=== PATIENT | male | born 1945 | race Caucasian/White ===

== ENCOUNTER 2018-04-19 07:22 | Outpatient (CLI) | payer MEDICARE ==
--- NOTE | 2018-04-19 09:14 | ULT ---
HEPATIC ULTRASOUND: History: Abnormal LFTs. FINDINGS: Real-time imaging of the liver was performed. This shows a normal appearing gallbladder. No gallbladd er wall thickening. Technologist reports a negative ultrasound Yancey's sign. The common bile duct in its slightly more extrahepatic portion is slightly dilated, measuring in the 9 mm range. Liver paren chyma is of increased echogenicity. The liver measures 20.5 cm in length. The spleen measures 13.9 cm . DOPPLER EVALUATION WITH SPECTRAL ANALYSIS: Normal flow pattern is seen within the liver. IMPRESSION: Fatty changes of the liver with some borderline hepatosplenomegaly. POS: [facility]
== END 2018-04-19 07:23 | disposition home or self-care (01) ==
LOC: BICULT 07:22
PROVIDERS: ATTEND Internal Medicine Gastroenterology
DX: Z12.11 Encounter for screening for malignant neoplasm of colon (principal); R74.0 Nonspecific elevation of levels of transaminase and lactic acid dehydrogenase [LDH]; K76.0 Fatty (change of) liver, not elsewhere classified
CPT/HCPCS: 76705

== ENCOUNTER 2018-05-06 12:51 | Outpatient (CLI) | payer MEDICARE ==
--- NOTE | 2018-05-06 13:35 | RAD ---
LUMBAR SPINE MINIMUM FOUR VIEWS: HISTORY: Radiculopathy. Spinal stenosis. COMPARISON: None. FINDINGS: The S1 vertebra is mildly lumbarized with a small disk. Moderate narrowing of the L5-S1 disk space. There is narrowing of the intraspinous space from L3-L5 with some cortical stenosis formation and sclerosis. Large posterior disk osteophyte complex at L5-S1. No acute fracture or malalignment. A 2 mm L5-S1 retrolisthesis, degenerative in nature, without translation with flexion or extension. There appear to be calculi projecting in the right inferior renal shadow, measuring up to 4 mm, and a n interpolar renal shadow measuring up to 2 mm. Moderate vascular calcifications. IMPRESSION: 1. Moderate spondylosis, as described. 2. Right-sided nephrolithiasis. POS: [facility]
--- NOTE | 2018-05-06 15:08 | MRI ---
NONCONTRAST MRI LUMBAR SPINE: DATE: 05/06/2018. HISTORY: Lumbar radiculopathy. FINDINGS: There is an incompletely imaged subcentimeter signal hyperintensity seen within the mid portion right kidney which is too small to characterize but statistically likely represents a renal cyst. There a re probable parapelvic left renal cysts seen. The remainder of the retroperitoneal structures demons trate a grossly normal nonenhanced MRI appearance. There is mild atrophy of the paraspinous musculature greater on the right. There is a transitional vertebra at the lumbosacral junction, and the S1 vertebral body does appear l umbarized. Please refer to numbering system on provided images. The conus medullaris is normal in appearance and terminates at the L1-2 level. Focus of increased T1 and T2 weighted signal intensity is seen in the L2 vertebral body likely relate d to small hemangioma or focal area of fat. T12-L1 level: There is a mild central disk protrusion which results in effacement of the central and ventral subarachnoid space without encroachment on the conus medullaris. Neural foramen are widely patent. L1-2 level: There is a broad-based disk-osteophyte complex and facet hypertrophic changes. There is effacement of the anterior aspect of the thecal sac greater to the left of midline with mild narrowi ng of the central spinal canal. Neural foramina are patent. L2-3 level: There is a broad-based disk-osteophyte complex. There are fact hypertrophic changes pre sent with mild fluid signal intensity in the facet joints. There is mild generalized narrowing of th e central spinal canal. There is minimal right and mild left-sided neural foraminal narrowing. L3-4 level: There is a broad-based disk-osteophyte complex. There are severe facet hypertrophic deena nges and prominent ligamentous thickenings. These findings attribute to severe narrowing of the cent ral spinal canal. There is moderate right and mild left-sided neural foraminal narrowing. L4-5 level: There is a question of tracer anterolisthesis of L4 on L5. There is a broad-based disk- osteophyte complex present. There are moderate to severe facet hypertrophic changes and prominent li gamentous thickening. Findings result in severe narrowing of the central spinal canal. There is mil d to moderate bilateral neural foraminal narrowing. L5-S1 level: There is trace retrolisthesis of L5 on S1. A broad-based disk-osteophyte complex is pr esent, and there are mild facet degenerative changes noted. The central spinal canal is patent with only slight effacement of the ventral aspect of the thecal sac. There is moderate left and mild righ t-sided neural foraminal narrowing. IMPRESSION: 1. Please refer to numbering system on this examination. There is a transitional vertebra at the mercy mbosacral junction with lumbarization of the S1 vertebral body. 2. Multilevel degenerative changes in the lumbar spine with severe degrees of central canal narrowin g at the L3-4 level and to a lesser extent at the L4-5 level. Secondary to broad-based disk-osteophyt e complexes and moderate to severe facet hypertrophic changes and ligamentous thickening. Neural for aminal narrowing is also present at these levels as well as the L5-S1 level primarily on the left. 3. Subcentimeter signal hyperintensity right kidney incompletely imaged or evaluated, but statistica lly likely represents a tiny cyst. There are probable left renal parapelvic cysts present. POS: [facility]
== END 2018-05-06 12:52 | disposition home or self-care (01) ==
LOC: BICMRI 12:51
PROVIDERS: ATTEND Physician Assistant Surgical
DX: M47.26 Other spondylosis with radiculopathy, lumbar region (principal); M51.16 Intervertebral disc disorders with radiculopathy, lumbar region; M48.062 Spinal stenosis, lumbar region with neurogenic claudication; M54.5 Low back pain; N20.0 Calculus of kidney; M48.07 Spinal stenosis, lumbosacral region; N28.89 Other specified disorders of kidney and ureter
CPT/HCPCS: 72110; 72148

== ENCOUNTER 2018-07-01 19:30 | Outpatient (CLI) | payer MEDICARE | END 2018-07-01 19:31 | disposition home or self-care (01) | LOC: SLEEPLAB 19:30 | PROVIDERS: ATTEND Family Medicine | DX: G47.33 Obstructive sleep apnea (adult) (pediatric) (principal); R53.83 Other fatigue; R06.83 Snoring; I10 Essential (primary) hypertension | CPT/HCPCS: 95811 ==

== ENCOUNTER 2018-07-14 00:09 | Outpatient (CLI) | payer MEDICARE ==
[2018-07-14 09:48] LABS: Hemoglobin 15.1 g/dL (14.0-18.0); Mean Corpuscular HGB CONC 33.5 g/dL (32.0-36.0); Mean Corpuscular Hemoglobin 33.4 pg (27.0-31.0); Mean Corpuscular Volume 99.8 fL (78.0-98.0); Mean Platelet Volume 9.3 fL (7.4-10.4); Platelet Count 169 thou/uL (130-400); RBC Distribution Width 10.8 % (11.5-14.5); Red Blood Cell (RBC) Count 4.53 mill/uL (4.70-6.10); White Blood Cell (WBC) Count 6.9 thou/uL (4.8-10.8)
[2018-07-14 09:55] LABS: PTT 28.8 SEC (22.9-36.1); Prothrombin Time 13.6 SEC (12.0-14.7)
[2018-07-14 10:10] LABS: Anion Gap 13 mmol/L (10-20); BUN (Urea Nitrogen) 13 mg/dL (8.4-25.7); Calc. Creatinine Clearance 0 mL/min (70-130); Calcium 9.6 mg/dL (7.8-10.44); Carbon Dioxide 29 mmol/L (23-31); Chloride 101 mmol/L (98-107); Estimated GFR-MDRD Greater than 90; Glucose 95 mg/dL (83-110); Potassium 3.5 mmol/L (3.5-5.1); Sodium 139 mmol/L (136-145)
--- NOTE | 2018-07-15 07:20 | EKG ---
Test Reason : Blood Pressure : / mmHG Vent. Rate : 052 BPM Atrial Rate : 052 BPM P-R Int : 212 ms QRS Dur : 092 ms QT Int : 420 ms P-R-T Axes : 094 049 059 degrees QTc Int : 390 ms Sinus bradycardia with marked sinus arrhythmia with 1st degree A-V block Septal infarct , age undetermined /Doubtful Abnormal ECG No previous ECGs available Confirmed by ISAMAR LLAMAS ([id number]) on 07/15/2018 7:19:58 AM Referred By: MELANIA Confirmed By:ISAMAR LLAMAS
== END 2018-07-14 00:10 | disposition home or self-care (01) ==
LOC: LABBT 00:09
PROVIDERS: ATTEND Surgery
DX: Z01.818 Encounter for other preprocedural examination (principal); M48.061 Spinal stenosis, lumbar region without neurogenic claudication; M54.16 Radiculopathy, lumbar region
CPT/HCPCS: 80048; 85027; 85610; 85730; 93005; 93010

== ENCOUNTER 2018-07-21 08:12 | Day surgery (SDC) | payer MEDICARE ==
[2018-07-14 08:34] VITALS: BMI 28.8
[2018-07-21] MEDS ORDERED: Sodium Chloride 0.9% 10 ML ONE (09:28)
[2018-07-21] MEDS ORDERED: Fentanyl 100 MCG/2 ML VIAL ONE ×3 (09:30→14:48)
[2018-07-21] MEDS ORDERED: Thrombin 5000 UNITS/5 ML VIAL ONE (11:04)
[2018-07-21] MEDS ORDERED: Bacitracin Zinc Ointment 30 gm TUBE ONE (12:35)
[2018-07-21] MEDS ORDERED: Fleet Enema 133 ML BOT PR PRN (14:02)
[2018-07-21] MEDS ORDERED: Milk Of Magnesia 30 ML UDCUP PO PRN (14:02)
[2018-07-21] MEDS ORDERED: tiZANidine HCl 4 MG TAB PO PRN (14:02)
[2018-07-21] MEDS ORDERED: Acetaminophen 325 MG TAB PO PRN (14:02)
[2018-07-21] MEDS ORDERED: Promethazine HCl 25 MG/ML VIAL IVPB PRN (14:02)
[2018-07-21] MEDS ORDERED: Mag-Al 1200 mg/1200 mg/30 ML UDCUP PO PRN (14:02)
[2018-07-21] MEDS ORDERED: Morphine 2 MG/ML SYRINGE SLOW IVP PRN (14:02)
[2018-07-21] MEDS ORDERED: traMADol HCl 50 MG TAB PO PRN (14:02)
[2018-07-21] MEDS ORDERED: Bisacodyl 10 MG SUPP PR PRN (14:02)
[2018-07-21] MEDS ORDERED: Acetaminophen/Codeine 30-300mg Tablet PO PRN (14:02)
[2018-07-21] MEDS ORDERED: Ondansetron HCl/PF 4 MG/2 ML Vial IVP PRN (14:25)
[2018-07-21] MEDS ORDERED: Promethazine HCl 25 MG/ML VIAL IM PRN (14:25)
[2018-07-21] MEDS ORDERED: Promethazine HCl 25 MG/ML VIAL SLOW IVP PRN (14:25)
[2018-07-21] MEDS ORDERED: Morphine 4 MG/ML VIAL ONE (14:27)
[2018-07-21] MEDS ORDERED: PROPOFOL 200 MG/20 ML VIAL ONE (14:41)
[2018-07-21] MEDS ORDERED: Dexamethasone 20 MG/5 ML VIAL ONE (14:41)
[2018-07-21] MEDS ORDERED: Ketorolac Tromethamine 30 MG/ML VIAL ONE (14:41)
[2018-07-21] MEDS ORDERED: Rocuronium Bromide 10 MG/ML (10ML VIAL) ONE (14:41)
[2018-07-21] MEDS ORDERED: Ondansetron PF 4 MG/2 ML Vial ONE (14:41)
[2018-07-21] MEDS ORDERED: HYDROmorphone 2 MG/ML VIAL SLOW IVP PRN (14:46)
[2018-07-21] MEDS ORDERED: Morphine 4 MG/ML VIAL SLOW IVP PRN (14:46)
[2018-07-21] MEDS ORDERED: Morphine Sulfate 2 MG/ML SYRINGE SLOW IVP PRN (14:46)
[2018-07-21] MEDS: HYDROcodone/Acetaminophen 7.5/325 mg Tablet PO PRN (18:46)
[2018-07-21] MEDS: CEFAZOLIN 2 GM in Premix Bag 1 BAG IVPB SCH (18:47)
[2018-07-21] MEDS: Sodium Chloride 0.9% 1,000 ML IV SCH (18:52)
[2018-07-22] MEDS: HYDROcodone/Acetaminophen 7.5/325 mg Tablet PO PRN (01:04)
[2018-07-22] MEDS: CEFAZOLIN 2 GM in Premix Bag 1 BAG IVPB SCH (01:04)
[2018-07-22] MEDS ORDERED: Levothyroxine Sodium 50 MCG TAB PO SCH (06:00)
[2018-07-22] MEDS: Sodium Chloride 0.9% 1,000 ML IV SCH (06:19)
[2018-07-22 08:33] VITALS: TEMP 98.2
[2018-07-22] MEDS ORDERED: Lisinopril/Hydrochlorothiazide 20 mg/12.5 mg Tablet PO SCH (09:00)
--- NOTE | 2018-07-22 10:47 | PRG ---
DATE OF SERVICE: 07/22/2018 Mr. Canales is doing very well this morning. He is postoperative day 1 from multilevel lumbar decompression. He has had resolution in his leg pain. He has already met criteria for dismissal. We will discharge him. Job ID: [id number]
[2018-07-22] MEDS: Amlodipine 10 MG TAB PO SCH ×2 (10:50→11:42)
--- NOTE | 2018-07-22 11:41 | OP ---
DATE OF PROCEDURE: 07/21/2018 [employer]: Bryon Villarreal PA-C PREPROCEDURE DIAGNOSES: Lumbar stenosis with neurogenic claudication. POSTPROCEDURE DIAGNOSES: Lumbar stenosis with neurogenic claudication. PROCEDURES PERFORMED: L3-L4, L4-L5, and L5-S1 laminectomies, partial facetectomies, and foraminotomies. DESCRIPTION OF PROCEDURE: After informed consent was obtained from the patient, the patient was brought to the OR. Proper patient, pause, and identification were carried out. Midline lumbar wound was drawn out. This was sterilely cleansed, prepared, and draped. Proper patient, pause, and identification were carried out. The wound was then opened with combination of sharp, monopolar, and blunt dissection. The L3, L4, L5, and S1 dorsal spines and lamina were exposed. Localization film confirmed area of interest. We then performed an L3, L4, L5, and S1 laminectomies, partial facetectomies, and foraminotomies over the L3, L4, L5, and S1 nerve roots. Copious irrigation occurred throughout as did maximizing hemostasis. The wound was then closed in anatomic layers following sprinkling of vancomycin powder. The patient then emerged from anesthesia. Job ID: [id number]
[2018-07-22 11:43] VITALS: BP 134/65
== END 2018-07-22 11:55 | disposition home or self-care (01) ==
LOC: SDC 08:12 → SURG A 15:14 → SDC 07-22 11:55
PROVIDERS: ATTEND Surgery
PROC: 01NB0ZZ Release Lumbar Nerve, Open Approach (ICD-10-PCS; principal; 2018-07-21)
DX: M48.062 Spinal stenosis, lumbar region with neurogenic claudication (principal); Z79.899 Other long term (current) drug therapy; Z88.7 Allergy status to serum and vaccine; Z91.048 Other nonmedicinal substance allergy status
CPT/HCPCS: 76000; J0690; J1100; J1885; J2270; J2405; J2704; J3010; J3370; J3490

== ENCOUNTER 2019-01-02 15:01 | Outpatient (CLI) | payer MEDICARE ==
--- NOTE | 2019-01-02 15:38 | CT ---
CT lumbar spine: 01/02/2019 COMPARISON: None HISTORY: Back pain TECHNIQUE: Axial CT imaging at 3 mm intervals through the lumbar spine without contrast. Coronal and sagittal reformatted imaging obtained. FINDINGS: Evaluation for central canal and/or neural foraminal stenosis is limited on CT. Bilateral laminectomy changes are noted at the L3 level through the S1 level. There is no significant anterolisthesis or retrolisthesis seen within the lumbar spine. Two nonobstructing stones are noted within the right kidney measuring up to 4 mm. There are 2-3 punct ate nonobstructing calculi within the left kidney. T12-L1: No osseous cause of significant central canal or neural foraminal stenosis. Mild posterior os teophyte formation noted. L1-2: Disc space narrowing and posterior osteophyte formation. Probable mild central canal stenosis. No osseous cause of significant neural foraminal stenosis. L2-3: Bilateral facet hypertrophy noted. No osseous cause of significant central canal or neural fora ameena stenosis. Anterior osteophyte formation noted. L3-4: Mild bilateral facet hypertrophy. Mild disc bulge noted. Probable mild bilateral neural foramin al stenosis and at least mild central canal stenosis. L4-5: Bilateral facet hypertrophy with mild bilateral neural foraminal stenosis. No osseous cause of significant central canal stenosis. L5-S1: There is disc space narrowing and vacuum disc formation with posterior osteophyte. There is bi lateral facet hypertrophy. Probable mild/moderate neural foraminal stenosis, left greater than right. No worrisome lytic or blastic bone lesion. No acute fracture or evidence of dislocation. There is sca ttered atherosclerotic calcification of the abdominal aorta and its branches. IMPRESSION: Postoperative and degenerative change within the lumbar spine as detailed above. Evaluati on for underlying central canal and/or neural foraminal stenosis is limited on routine CT exam. Nonobstructing bilateral renal calculi.
== END 2019-01-02 15:02 | disposition home or self-care (01) ==
LOC: BICCT 15:01
PROVIDERS: ATTEND Specialist
DX: M54.5 Low back pain (principal); M96.1 Postlaminectomy syndrome, not elsewhere classified; M47.816 Spondylosis without myelopathy or radiculopathy, lumbar region; M48.061 Spinal stenosis, lumbar region without neurogenic claudication; N20.0 Calculus of kidney; Z98.890 Other specified postprocedural states
CPT/HCPCS: 72131

== ENCOUNTER 2019-08-28 14:07 | Outpatient (CLI) | payer MEDICARE ==
--- NOTE | 2019-08-28 16:14 | RAD ---
CHEST 2 VIEWS: HISTORY: Preoperative evaluation. FINDINGS: Heart size is within normal limits. The lungs are clear. No confluent pneumonia, overt edema, pleur al effusion, or other acute process. IMPRESSION: No acute intrathoracic disease. Atherosclerosis of the aorta with some ectasia. POS: [facility]
[2019-08-28 16:31] LABS: #Eosinphils 0.1 thou/uL (0.0-0.7); #Lymphocytes 1.7 thou/uL (1.20-3.40); #Monocytes 0.8 thou/uL (0.11-0.59); #Neutrophils 4.8 thou/uL (1.40-6.50); %Basophils 0.5 % (0.0-1.0); %Eosinophils 1.6 % (0.0-10.0); %Lymphocytes 23.1 % (21.0-51.0); %Monocytes 10.1 % (0.0-10.0); %Neutrophils 64.7 % (42.0-75.0); Hemoglobin 15.8 g/dL (14.0-18.0); Mean Corpuscular HGB CONC 33.5 g/dL (32.0-36.0); Mean Platelet Volume 9.3 fL (7.4-10.4); Platelet Count 174 thou/uL (130-400); RBC Distribution Width 10.9 % (11.5-14.5); Red Blood Cell (RBC) Count 4.64 mill/uL (4.70-6.10); White Blood Cell (WBC) Count 7.5 thou/uL (4.8-10.8)
[2019-08-28 16:39] LABS: Bacteria/HPF None Seen HPF (None Seen); Bilirubin Negative (Negative); Blood, Urine Negative (Negative); Clarity Clear (Clear); Glucose, Urine (Dipstick) Normal (Negative); Leukocyte Negative Leu/uL (Negative); Nitrite Negative (Negative); Protein, Urine (Dipstick) Negative (Neg-Trace); RBC/HPF 0-3 HPF (0-3); Squamous Epithelial None Seen HPF (0-3); Urobilinogen Normal mg/dL (Less than 2); WBC/HPF 0-3 HPF (0-3)
[2019-08-28 16:45] LABS: ALT (SGPT) 48 U/L (8-55); AST (SGOT) 38 U/L (5-34); Albumin 4.6 g/dL (3.4-4.8); Alkaline Phosphatase 65 U/L (40-110); Anion Gap 12 mmol/L (10-20); BUN (Urea Nitrogen) 10 mg/dL (8.4-25.7); Bilirubin, Total 0.5 mg/dL (0.2-1.2); Calc. Creatinine Clearance 0 mL/min (70-130); Calcium 9.2 mg/dL (7.8-10.44); Carbon Dioxide 30 mmol/L (23-31); Chloride 101 mmol/L (98-107); Estimated GFR-MDRD 86; Globulin 2.9 g/dL (2.4-3.5); Glucose 97 mg/dL (83-110); Potassium 4.8 mmol/L (3.5-5.1); Protein, Total 7.5 g/dL (5.8-8.1); Sodium 138 mmol/L (136-145)
[2019-08-28 17:01] LABS: PTT 27.6 sec (22.9-36.1); Prothrombin Time 12.9 sec (12.0-14.7)
[2019-08-28 17:02] LABS: Free T4 (Free Thyroxine) 1.12 ng/dL (0.70-1.48)
== END 2019-08-28 14:08 | disposition home or self-care (01) ==
LOC: SCSRAD 14:07
PROVIDERS: ATTEND Family Medicine
DX: Z01.818 Encounter for other preprocedural examination (principal); I10 Essential (primary) hypertension; I70.0 Atherosclerosis of aorta; I77.819 Aortic ectasia, unspecified site
CPT/HCPCS: 36415; 71046; 80053; 81001; 84439; 84443; 85025; 85610; 85730

== ENCOUNTER 2020-01-12 07:42 | Outpatient (CLI) | payer MEDICARE ==
--- NOTE | 2020-01-12 08:03 | RAD ---
Left hip 2 views HISTORY: Hip pain. FINDINGS: There is mild joint space narrowing, osteophytosis, and subchondral sclerosis femoral head contour is maintained. No acute fracture or dislocation. No aggressive osseous erosions. Degenerative changes of the sacroiliac joints are apparent. Postoperative changes lower lumbar spine partially visualized. Phleboliths tract over the pelvis. IMPRESSION : Mild osteoarthritic changes left hip. No acute osseous abnormalities are demonstrated.
[2020-01-12 10:23] LABS: Hemoglobin A1c 5.2 % (4.0-6.0)
[2020-01-12 10:34] LABS: Glucose 100 mg/dL (83-110)
[2020-01-12 10:50] LABS: Free T4 (Free Thyroxine) 1.22 ng/dL (0.70-1.48); Thyroid Stimulating Hormone 1.5009 uIU/mL (0.35-4.94)
== END 2020-01-12 07:43 | disposition home or self-care (01) ==
LOC: SCSRAD 07:42
PROVIDERS: ATTEND Family Medicine
DX: M79.605 Pain in left leg (principal); E03.9 Hypothyroidism, unspecified; R35.0 Frequency of micturition; M16.12 Unilateral primary osteoarthritis, left hip
CPT/HCPCS: 36415; 82947; 83036; 84439; 84443; 84481

== ENCOUNTER 2020-01-31 14:56 | Outpatient (CLI) | payer MEDICARE ==
--- NOTE | 2020-01-31 16:25 | CT ---
CT ABDOMEN AND PELVIS WITH AND WITHOUT IV CONTRAST: 01/31/20 HISTORY: Hematuria. COMPARISON: None. FINDINGS: The lung bases are unremarkable. No calcified gallstones are seen. The liver, spleen, pancreas, and a drenal glands are normal. There are bilateral renal calculi, the largest of which is in the right upper pole measuring about 4 mm. Postcontrast images demonstrate a 7-8 mm hypodense lesion in the right renal cortex. Statisticall y this most likely represents a cyst. There is normal contrast excretion into the ureters and urinary bladder. No hydroureteronephrosis seen on either side. No calculi seen in the ureters or the urinary bladder. No free air, free fluid or lymphadenopathy seen in the abdomen or pelvis. There are vascular calcific ations without evidence of aneurysmal dilatation of the abdominal aorta. There are postop changes and metallic hardware in the lower lumbar spine. There is mild colonic diverticulosis. There are small f at containing bilateral inguinal herniae. IMPRESSION: 1. Bilateral nonobstructing renal calculi. 2. Probable small right renal cyst. 3. Mild colonic diverticulosis. POS: [facility]
== END 2020-01-31 14:57 | disposition home or self-care (01) ==
LOC: BICCT 14:56
PROVIDERS: ATTEND Urology
DX: R31.29 Other microscopic hematuria (principal); N20.0 Calculus of kidney; K57.30 Diverticulosis of large intestine without perforation or abscess without bleeding
CPT/HCPCS: 74178; 82565

== ENCOUNTER 2020-07-01 09:39 | Outpatient (CLI) | payer MEDICARE ==
[2020-07-01 10:52] LABS: Hemoglobin 14.4 g/dL (13.5-17.5); Mean Corpuscular HGB CONC 33.4 g/dL (32.0-36.0); Mean Corpuscular Hemoglobin 32.4 pg (27.0-33.0); Mean Corpuscular Volume 97.1 fl (81.2-95.1); Mean Platelet Volume 11.4 fl (7.4-10.4); Platelet Count 188 10x3/uL (150-450); RBC Distribution Width 12.1 % (11.5-14.5); Red Blood Cell (RBC) Count 4.44 10x6/uL (4.32-5.72); White Blood Cell (WBC) Count 6.8 10x3/uL (3.5-10.5)
[2020-07-01 11:08] LABS: PTT 25.4 sec (22.0-33.0); Prothrombin Time 10.7 sec (9.5-12.1)
[2020-07-01 11:12] LABS: Anion Gap 14 mmol/L (10-20); BUN (Urea Nitrogen) 17 mg/dL (8.4-25.7); Calc. Creatinine Clearance 0 mL/min (70-130); Carbon Dioxide 26 mmol/L (23-31); Chloride 103 mmol/L (98-107); Glucose 106 mg/dL (83-110); Sodium 139 mmol/L (136-145)
[2020-07-01 11:19] LABS: Bilirubin Neg (Negative); Blood, Urine Negative (Negative); Clarity Clear (Clear); Glucose, Urine (Dipstick) Normal (Negative); Ketone, Urine Negative (Negative); Leukocyte Negative (Negative); Nitrite Negative (Negative); Protein, Urine (Dipstick) Negative (Neg-Trace); Urobilinogen Normal mg/dL (Less than 2)
[2020-07-01 11:45] LABS: Bacteria/HPF None Seen HPF (None Seen); RBC/HPF None Seen HPF (0-3); Squamous Epithelial None Seen HPF (0-3); WBC/HPF None Seen HPF (0-3)
== END 2020-07-01 09:40 | disposition home or self-care (01) ==
LOC: LABBT 09:39
PROVIDERS: ATTEND Urology
DX: Z01.818 Encounter for other preprocedural examination (principal); N40.1 Benign prostatic hyperplasia with lower urinary tract symptoms; R35.0 Frequency of micturition; R35.1 Nocturia; G47.33 Obstructive sleep apnea (adult) (pediatric); N20.0 Calculus of kidney; R31.29 Other microscopic hematuria
CPT/HCPCS: 80048; 81001; 85027; 85610; 85730; 87086; 93005; 93010

== ENCOUNTER 2020-07-04 06:21 | Day surgery (SDC) | payer MEDICARE ==
[2020-07-03 10:53] VITALS: BMI 27.6
[2020-07-04] MEDS ORDERED: Levofloxacin 500 mg/D5W 100 ml Premix Bag ONE (06:39)
[2020-07-04] MEDS ORDERED: Fentanyl 100 MCG/2 ML VIAL ONE (08:16)
[2020-07-04] MEDS ORDERED: Ondansetron PF 4 MG/2 ML Vial ONE (08:33)
[2020-07-04] MEDS ORDERED: PROPOFOL 200 MG/20 ML VIAL ONE (08:33)
[2020-07-04] MEDS ORDERED: Dexamethasone 20 MG/5 ML VIAL ONE (08:33)
[2020-07-04] MEDS ORDERED: Lidocaine 1% PF 5 ML VIAL ONE (08:33)
[2020-07-04] MEDS ORDERED: Succinylcholine 200 MG/10 ml SYRINGE FS ONE (08:33)
[2020-07-04] MEDS ORDERED: B & O ONE (09:28)
[2020-07-04] MEDS ORDERED: HYDROcodone/Acetaminophen 5/325 mg Tablet ONE (11:33)
== END 2020-07-04 12:08 | disposition home or self-care (01) ==
LOC: SDC 06:21
PROVIDERS: ATTEND Urology
PROC: 0V507ZZ Destruction of Prostate, Via Natural or Artificial Opening (ICD-10-PCS; principal; 2020-07-04)
DX: N40.1 Benign prostatic hyperplasia with lower urinary tract symptoms (principal); N13.8 Other obstructive and reflux uropathy; R35.0 Frequency of micturition; R35.1 Nocturia; N32.81 Overactive bladder; G47.33 Obstructive sleep apnea (adult) (pediatric); N20.0 Calculus of kidney; R31.29 Other microscopic hematuria; Z88.7 Allergy status to serum and vaccine; Z79.899 Other long term (current) drug therapy; Z88.8 Allergy status to other drugs, medicaments and biological substances
CPT/HCPCS: J1100; J1956; J2405; J2704; J3010

== ENCOUNTER 2020-07-15 08:47 | Outpatient (CLI) | payer MEDICARE ==
[2020-07-15 10:57] LABS: #Eosinphils 0.2 thou/uL (0.0-0.7); #Lymphocytes 1.9 thou/uL (1.20-3.40); #Monocytes 1.2 thou/uL (0.11-0.59); #Neutrophils 6.3 thou/uL (1.40-6.50); %Basophils 0.1 % (0.0-1.0); %Eosinophils 1.8 % (0.0-10.0); %Lymphocytes 20.1 % (21.0-51.0); %Monocytes 12.7 % (0.0-10.0); %Neutrophils 65.3 % (42.0-75.0); Hemoglobin 14.9 g/dL (14.0-18.0); Mean Corpuscular Hemoglobin 32.8 pg (27.0-31.0); Mean Corpuscular Volume 99.5 fL (78.0-98.0); Mean Platelet Volume 9.4 fL (7.4-10.4); Platelet Count 209 thou/uL (130-400); RBC Distribution Width 11.4 % (11.5-14.5); Red Blood Cell (RBC) Count 4.54 mill/uL (4.70-6.10); White Blood Cell (WBC) Count 9.6 thou/uL (4.8-10.8)
[2020-07-15 11:05] LABS: PTT 33.5 sec (22.9-36.1); Prothrombin Time 13.7 sec (12.0-14.7)
[2020-07-15 11:13] LABS: ALT (SGPT) 19 U/L (8-55); AST (SGOT) 25 U/L (5-34); Albumin 4.4 g/dL (3.4-4.8); Alkaline Phosphatase 77 U/L (40-110); Anion Gap 13 mmol/L (10-20); BUN (Urea Nitrogen) 15 mg/dL (8.4-25.7); Bilirubin, Total 0.5 mg/dL (0.2-1.2); Calc. Creatinine Clearance 0 mL/min (70-130); Calcium 9.2 mg/dL (7.8-10.44); Carbon Dioxide 28 mmol/L (23-31); Chloride 102 mmol/L (98-107); Globulin 2.9 g/dL (2.4-3.5); Glucose 97 mg/dL (83-110); Potassium 4.3 mmol/L (3.5-5.1); Protein, Total 7.3 g/dL (5.8-8.1); Sodium 139 mmol/L (136-145)
[2020-07-15 11:26] LABS: Bacteria/HPF None Seen HPF (None Seen); Bilirubin Negative (Negative); Blood, Urine 1+ (Negative); Clarity Clear (Clear); Glucose, Urine (Dipstick) Normal (Negative); Ketone, Urine Negative (Negative); Leukocyte 75 Leu/uL (Negative); Nitrite Negative (Negative); Protein, Urine (Dipstick) 70 mg/dL (Neg-Trace); RBC/HPF Greater than 50 HPF (0-3); Specific Gravity, Urine 1.021 (1.002-1.036); Squamous Epithelial None Seen HPF (0-3); Urobilinogen Normal mg/dL (Less than 2); pH, Urine 5.5 (5.0-9.0)
[2020-07-15 11:35] LABS: Free T4 (Free Thyroxine) 1.21 ng/dL (0.70-1.48)
== END 2020-07-15 08:48 | disposition home or self-care (01) ==
LOC: SCSRAD 08:47
PROVIDERS: ATTEND Family Medicine
DX: Z01.818 Encounter for other preprocedural examination (principal)
CPT/HCPCS: 36415; 71046; 80053; 81003; 81015; 84439; 84443; 85025; 85610; 85730

== ENCOUNTER 2020-12-19 12:26 | Outpatient (CLI) | payer MEDICARE | END 2020-12-19 12:27 | disposition home or self-care (01) | LOC: MRI 12:26 | PROVIDERS: ATTEND Psychiatry & Neurology Neurology | DX: M54.17 Radiculopathy, lumbosacral region (principal); M47.816 Spondylosis without myelopathy or radiculopathy, lumbar region; Z98.890 Other specified postprocedural states | CPT/HCPCS: 72148 ==

== ENCOUNTER 2021-01-20 14:44 | Outpatient (CLI) | payer MEDICARE ==
[2021-01-20 15:40] LABS: Hemoglobin 14.9 g/dL (13.5-17.5); Mean Corpuscular Hemoglobin 32.2 pg (27.0-33.0); Mean Corpuscular Volume 97.4 fl (81.2-95.1); Mean Platelet Volume 10.3 fl (7.4-10.4); Platelet Count 205 10x3/uL (150-450); RBC Distribution Width 12.1 % (11.5-14.5); Red Blood Cell (RBC) Count 4.63 10x6/uL (4.32-5.72); White Blood Cell (WBC) Count 8.6 10x3/uL (3.5-10.5)
[2021-01-20 15:58] LABS: PTT 24.8 sec (22.0-33.0); Prothrombin Time 10.9 sec (9.5-12.1)
[2021-01-20 16:02] LABS: Bilirubin Neg (Negative); Blood, Urine 10 (Negative); Clarity Clear (Clear); Glucose, Urine (Dipstick) Normal (Negative); Ketone, Urine 50 mg/dL (Negative); Leukocyte 25 (Negative); Nitrite Negative (Negative); Protein, Urine (Dipstick) 15 mg/dl (Neg-Trace); Urobilinogen Normal mg/dL (Less than 2)
[2021-01-20 16:02] LABS: Anion Gap 14 mmol/L (10-20); BUN (Urea Nitrogen) 15 mg/dL (8.4-25.7); Calc. Creatinine Clearance 0 mL/min (70-130); Carbon Dioxide 27 mmol/L (23-31); Chloride 103 mmol/L (98-107); Glucose 109 mg/dL (83-110); Potassium 3.9 mmol/L (3.5-5.1); Sodium 140 mmol/L (136-145)
[2021-01-20 16:26] LABS: Bacteria/HPF None Seen HPF (None Seen); Mucous/LPF 1+ LPF (<2+); RBC/HPF 0-3 HPF (0-3); Squamous Epithelial 0-3 HPF (0-3); WBC/HPF 0-3 HPF (0-3)
[2021-01-21 00:09] LABS: SARS-CoV-2 PCR by NAA Not Detected (NotDetected)
== END 2021-01-20 14:45 | disposition home or self-care (01) ==
LOC: LABBT 14:44
PROVIDERS: ATTEND Urology
DX: Z01.818 Encounter for other preprocedural examination (principal); N20.0 Calculus of kidney; N40.1 Benign prostatic hyperplasia with lower urinary tract symptoms; R33.8 Other retention of urine; R39.15 Urgency of urination; Z20.822 Contact with and (suspected) exposure to COVID-19
CPT/HCPCS: 80048; 81001; 85027; 85610; 85730; 87086; 93005; U0003; U0005; 93010

== ENCOUNTER 2021-02-24 13:03 | Outpatient (CLI) | payer MEDICARE ==
[2021-02-24 13:55] LABS: Bilirubin Neg (Negative); Blood, Urine Negative (Negative); Clarity Clear (Clear); Glucose, Urine (Dipstick) Normal (Negative); Ketone, Urine Negative (Negative); Leukocyte Negative (Negative); Nitrite Negative (Negative); Protein, Urine (Dipstick) Negative (Neg-Trace); Specific Gravity, Urine 1.015 (1.002-1.036); Urobilinogen Normal mg/dL (Less than 2)
[2021-02-24 13:59] LABS: Hemoglobin 14.8 g/dL (13.5-17.5); Mean Corpuscular HGB CONC 32.9 g/dL (32.0-36.0); Mean Corpuscular Hemoglobin 32.2 pg (27.0-33.0); Mean Corpuscular Volume 97.8 fl (81.2-95.1); Mean Platelet Volume 10.6 fl (7.4-10.4); Platelet Count 236 10x3/uL (150-450); RBC Distribution Width 11.9 % (11.5-14.5); White Blood Cell (WBC) Count 8.2 10x3/uL (3.5-10.5)
[2021-02-24 14:16] LABS: PTT 26.1 sec (22.0-33.0); Prothrombin Time 10.7 sec (9.5-12.1)
[2021-02-24 14:17] LABS: Anion Gap 13 mmol/L (10-20); BUN (Urea Nitrogen) 14 mg/dL (8.4-25.7); Calc. Creatinine Clearance 0 mL/min (70-130); Calcium 9.2 mg/dL (7.8-10.44); Carbon Dioxide 27 mmol/L (23-31); Chloride 103 mmol/L (98-107); Glucose 128 mg/dL (83-110); Sodium 139 mmol/L (136-145)
[2021-02-24 14:29] LABS: Bacteria/HPF None Seen HPF (None Seen); RBC/HPF 0-3 HPF (0-3); Squamous Epithelial 0-3 HPF (0-3); WBC/HPF 0-3 HPF (0-3)
[2021-02-25 11:03] LABS: SARS-CoV-2 PCR by NAA Not Detected (NotDetected)
== END 2021-02-24 13:04 | disposition home or self-care (01) ==
LOC: LABBT 13:03
PROVIDERS: ATTEND Urology
DX: Z01.818 Encounter for other preprocedural examination (principal); R33.9 Retention of urine, unspecified; R39.15 Urgency of urination; N20.0 Calculus of kidney; N40.1 Benign prostatic hyperplasia with lower urinary tract symptoms; Z20.822 Contact with and (suspected) exposure to COVID-19
CPT/HCPCS: 80048; 81001; 85027; 85610; 85730; 87086; 93005; U0003; U0005; 93010

== ENCOUNTER 2021-02-27 07:29 | Day surgery (SDC) | payer MEDICARE ==
[2021-02-26 11:08] VITALS: BMI 26.3
[2021-02-27] MEDS ORDERED: Levofloxacin 500 mg/D5W 100 ml Premix Bag ONE (09:07)
[2021-02-27] MEDS ORDERED: B & O ONE (10:00)
[2021-02-27] MEDS ORDERED: Iothalamate Meglumine 60% 50 ML VIAL FS ONE (10:00)
[2021-02-27] MEDS ORDERED: Fentanyl 100 MCG/2 ML VIAL ONE ×4 (10:11→12:53)
[2021-02-27] MEDS ORDERED: Rocuronium Bromide 10 MG/ML (10ML VIAL) ONE (10:23)
[2021-02-27] MEDS ORDERED: PROPOFOL 200 MG/20 ML VIAL ONE (10:23)
[2021-02-27] MEDS ORDERED: Lidocaine 1% PF 5 ML VIAL ONE (10:23)
[2021-02-27] MEDS ORDERED: Dexamethasone 20 MG/5 ML VIAL ONE (10:23)
[2021-02-27] MEDS ORDERED: Glycopyrrolate 0.2 MG/ML 5 ML SYRINGE ONE (10:23)
[2021-02-27] MEDS ORDERED: Ondansetron PF 4 MG/2 ML Vial ONE (10:23)
[2021-02-27] MEDS ORDERED: Morphine 4 MG/ML VIAL ONE (12:37)
[2021-02-27] MEDS ORDERED: HYDROcodone/Acetaminophen 5/325 mg Tablet ONE (14:10)
== END 2021-02-27 14:58 | disposition home or self-care (01) ==
LOC: SDC 07:29
PROVIDERS: ATTEND Urology
PROC: 0T788DZ Dilation of Bilateral Ureters with Intraluminal Device, Via Natural or Artificial Opening Endoscopic (ICD-10-PCS; principal; 2021-02-27)
DX: N20.0 Calculus of kidney (principal); N13.5 Crossing vessel and stricture of ureter without hydronephrosis; N40.1 Benign prostatic hyperplasia with lower urinary tract symptoms; R33.8 Other retention of urine; R39.15 Urgency of urination; I10 Essential (primary) hypertension; E03.9 Hypothyroidism, unspecified; G47.33 Obstructive sleep apnea (adult) (pediatric); Z79.899 Other long term (current) drug therapy; Z88.7 Allergy status to serum and vaccine; Z88.8 Allergy status to other drugs, medicaments and biological substances; Z86.16 Personal history of COVID-19
CPT/HCPCS: 52332; 76000; C1713; C2617; Q9961; J1100; J1956; J2270; J2405; J2704; J3010

== ENCOUNTER 2021-03-31 08:53 | Outpatient (CLI) | payer MEDICARE | END 2021-03-31 08:54 | disposition home or self-care (01) | LOC: CT 08:53 | PROVIDERS: ATTEND Urology | DX: N20.0 Calculus of kidney (principal); N43.3 Hydrocele, unspecified; Z96.0 Presence of urogenital implants | CPT/HCPCS: 74176 ==

== ENCOUNTER 2021-03-31 14:21 | Outpatient (CLI) | payer MEDICARE ==
[2021-03-31 15:32] LABS: Hemoglobin 14.5 g/dL (13.5-17.5); Mean Corpuscular Hemoglobin 32.8 pg (27.0-33.0); Mean Corpuscular Volume 99.3 fl (81.2-95.1); Mean Platelet Volume 10.3 fl (7.4-10.4); Platelet Count 246 10x3/uL (150-450); RBC Distribution Width 11.7 % (11.5-14.5); Red Blood Cell (RBC) Count 4.42 10x6/uL (4.32-5.72); White Blood Cell (WBC) Count 8.3 10x3/uL (3.5-10.5)
[2021-03-31 15:41] LABS: Bilirubin Neg (Negative); Blood, Urine 250 (Negative); Glucose, Urine (Dipstick) Normal (Negative); Ketone, Urine 5 mg/dL (Negative); Leukocyte 500 (Negative); Nitrite Positive (Negative); Protein, Urine (Dipstick) 500 mg/dl (Neg-Trace); Urobilinogen Normal mg/dL (Less than 2)
[2021-03-31 15:43] LABS: Clarity Cloudy (Clear)
[2021-03-31 16:01] LABS: Bacteria/HPF Rare-Few HPF (None Seen); RBC/HPF Greater than 50 HPF (0-3); Squamous Epithelial 0-3 HPF (0-3)
[2021-03-31 16:08] LABS: INR-International Normal Ratio 0.9; PTT 25.9 sec (22.0-33.0); Prothrombin Time 10.5 sec (9.5-12.1)
[2021-03-31 16:10] LABS: Anion Gap 13 mmol/L (10-20); BUN (Urea Nitrogen) 14 mg/dL (8.4-25.7); Calc. Creatinine Clearance 0 mL/min (70-130); Carbon Dioxide 27 mmol/L (23-31); Chloride 103 mmol/L (98-107); Glucose 130 mg/dL (83-110); Potassium 4.4 mmol/L (3.5-5.1); Sodium 139 mmol/L (136-145)
[2021-04-01 07:28] LABS: SARS-CoV-2 PCR by NAA Not Detected (NotDetected)
== END 2021-03-31 14:22 | disposition home or self-care (01) ==
LOC: LABBT 14:21
PROVIDERS: ATTEND Urology
DX: Z01.818 Encounter for other preprocedural examination (principal); N20.0 Calculus of kidney; N40.1 Benign prostatic hyperplasia with lower urinary tract symptoms; R33.9 Retention of urine, unspecified; R39.15 Urgency of urination; Z96.0 Presence of urogenital implants; Z20.822 Contact with and (suspected) exposure to COVID-19
CPT/HCPCS: 80048; 81001; 85027; 85610; 85730; 87086; 93005; U0003; U0005; 93010

== ENCOUNTER 2021-04-03 08:03 | Day surgery (SDC) | payer MEDICARE ==
[2021-03-31 10:44] VITALS: BMI 25.7
[2021-04-03] MEDS ORDERED: B & O ONE (08:33)
[2021-04-03] MEDS ORDERED: Fentanyl 100 MCG/2 ML VIAL ONE (11:13)
[2021-04-03] MEDS ORDERED: PROPOFOL 20 ML ONE (11:13)
[2021-04-03] MEDS ORDERED: Levofloxacin 500 mg/D5W 100 ml Premix Bag ONE (11:22)
[2021-04-03] MEDS ORDERED: Lidocaine 1% PF 5 ML VIAL ONE (11:39)
== END 2021-04-03 12:50 | disposition home or self-care (01) ==
LOC: SDC 08:03
PROVIDERS: ATTEND Urology
PROC: 0TP98DZ Removal of Intraluminal Device from Ureter, Via Natural or Artificial Opening Endoscopic (ICD-10-PCS; principal; 2021-04-03)
DX: Z46.6 Encounter for fitting and adjustment of urinary device (principal); I10 Essential (primary) hypertension; E03.9 Hypothyroidism, unspecified; M19.90 Unspecified osteoarthritis, unspecified site; G47.33 Obstructive sleep apnea (adult) (pediatric); Z86.16 Personal history of COVID-19; Z87.442 Personal history of urinary calculi; Z79.899 Other long term (current) drug therapy; Z88.7 Allergy status to serum and vaccine; Z88.8 Allergy status to other drugs, medicaments and biological substances
CPT/HCPCS: J1956; J2704; J3010